=== PATIENT | male | born 1970 | race Caucasian/White ===

== ENCOUNTER → 2016-03-24 | Outpatient (CLI) | payer BC, OTHER ==
[2016-03-25 11:43] LABS: HEP B CORE IGM ANTIBODY Negative (Negative); HEPATITIS B SURFACE AG Negative (Negative)
[2016-03-25 13:50] LABS: HEPATITIS C ANTIBODY SCREEN Negative (Negative)
== END ==
LOC: LAB 08:27
PROVIDERS: ATTEND Family Medicine
DX: Z20.5 Contact with and (suspected) exposure to viral hepatitis (principal); E78.5 Hyperlipidemia, unspecified; I10 Essential (primary) hypertension
CPT/HCPCS: 86705; 86709; 86803; 87340